=== PATIENT | male | born 1950 | race Caucasian/White ===

== ENCOUNTER → 2019-08-16 | Day surgery (SDC) | payer MEDICARE, OTHER ==
[2019-08-10 15:31] LABS: BASOPHILS % 0.4 % (0.0-1.0); EOSINOPHILS # (AUTO) 0.7 (0.0-0.4); EOSINOPHILS % 6.7 % (0.0-6.0); HEMATOCRIT 46.1 % (38.2-49.6); HEMOGLOBIN 15.4 g/dL (14.0-18.0); LYMPHOCYTES # (AUTO) 2.5 (1.0-3.2); LYMPHOCYTES % 25.8 % (18.0-39.1); MEAN CORPUSCULAR HEMOGLOBIN 30.4 pg (28-32); MEAN CORPUSCULAR HGB CONC 33.4 g/dL (31-35); MEAN CORPUSCULAR VOLUME 91.1 fL (81-99); MONOCYTES # (AUTO) 0.5 (0.2-0.8); MONOCYTES % 5.4 % (4.4-11.3); NEUTROPHILS # (AUTO) 5.9 (2.1-6.9); NEUTROPHILS % 61.4 % (38.7-80.0); PLATELET COUNT 244 x10e3/uL (140-360); RED BLOOD COUNT 5.06 x10e6/uL (4.3-5.7); RED CELL DISTRIBUTION WIDTH 12.9 % (11.7-14.4)
[~2019-08-16] MED LIST: ASPIR 8181 MG PO; DOCUSATE SODIU100 MG PO; FLOMAX0.4 MG PO; HYDROCHLOROTHIA25 MG PO; JARDIANCE25 MG PO; LIPITOR20 MG PO; LISINOPRIL10 MG PO; MELATONIN3 MG PO; METFORMIN HCL500 MG PO; MIDAZOLAM HCL 2 MG/2 ML VIAL ONE; OMEGA 3 1,0001 EACH PO; ONCE DAILY1 EACH PO; PROPOFOL IV EMULSION 10 MG/ML 50 ML VIAL ONE; PROPRANOLOL HCL80 MG PO; PROSCAR5 MG PO; RAPAFLO8 MG PO
[2019-08-16 12:10] VITALS: BP 116/72
== END | disposition home or self-care (01) ==
LOC: OR 08:47
PROVIDERS: ATTEND Internal Medicine
DX: K63.5 Polyp of colon (principal); K59.00 Constipation, unspecified; K64.0 First degree hemorrhoids; I25.810 Atherosclerosis of coronary artery bypass graft(s) without angina pectoris; E66.9 Obesity, unspecified; K21.9 Gastro-esophageal reflux disease without esophagitis; E11.9 Type 2 diabetes mellitus without complications; I10 Essential (primary) hypertension; G47.33 Obstructive sleep apnea (adult) (pediatric); F41.9 Anxiety disorder, unspecified; Z01.812 Encounter for preprocedural laboratory examination; Z79.82 Long term (current) use of aspirin; Z79.84 Long term (current) use of oral hypoglycemic drugs; Z68.41 Body mass index [BMI] 40.0-44.9, adult; Z85.820 Personal history of malignant melanoma of skin
CPT/HCPCS: 36415 ×2; 45378; 82948; 85025; J2250; J2704